=== PATIENT | male | born 1970 | race Caucasian/White ===

== ENCOUNTER 2023-10-10 08:40 | Emergency (ER) | payer BC ==
[~2023-10-10] VITALS: Ht 177.8 cm; Wt 86.2 kg
[2023-10-10 08:41] VITALS: O2SAT 97
== END 2023-10-10 10:46 | disposition home or self-care (01) ==
LOC: ER 08:47
DX: Z71.1 Person with feared health complaint in whom no diagnosis is made (principal); E29.1 Testicular hypofunction
CPT/HCPCS: 74019; 99283